=== PATIENT | male | born 1995 | race Two or more races ===

== ENCOUNTER 2024-09-17 15:18 | Emergency (ER) | payer OTHER ==
[~2024-09-17] VITALS: Ht 165.1 cm; Wt 90.7 kg
[2024-09-17 16:15] VITALS: BP 165/89; PULSE 74; RESP 20; TEMP 98; O2SAT 99
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
--- NOTE | 2024-09-17 17:14 | DVH ---
EXAM: CT CERVICAL WITHOUT CONTRAST HISTORY: [facility] COMPARISON: None CTDIvol 23.93 mGy, DLP 578.33 mGy*cm. TECHNIQUE: Multiple axial CT images of the spine were obtained using bone algorithm. Axial and chamberlain l reformatting was done. Bone and soft tissue windows were reviewed. FINDINGS: No CT evidence of definite acute fracture, spinal dislocation, or significant appearing acu te subluxation is seen. The visualized paraspinal soft tissues are grossly unremarkable. MRI recommended if clinical symptoms persist IMPRESSION: 1. No definite CT evidence of acute fracture or dislocation of the bony cervical spine. Straightening of normal cervical lordosis
[2024-09-17] MEDS ORDERED: IBUP1TAB5 PO (17:31)
[2024-09-17] MEDS ORDERED: METH-1181 PO (17:31)
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
[2024-09-17] MEDS ORDERED: NAP500T PO (17:40)
== END 2024-09-17 17:39 | disposition home or self-care (01) ==
LOC: ER 15:38
DX: M54.2 Cervicalgia (principal); V89.2XXA Person injured in unspecified motor-vehicle accident, traffic, initial encounter; Y93.89 Activity, other specified; Y92.410 Unspecified street and highway as the place of occurrence of the external cause; Y99.8 Other external cause status
CPT/HCPCS: 70450; 72125